=== PATIENT | female | born 1955 | race Caucasian/White ===

== ENCOUNTER 2017-03-26 14:12 | Emergency (ER) | payer OTHER ==
[2017-03-26] MEDS: ALBUTEROL 0.083% (NEB) 2.5 MG/3 ML AMP HHN (18:32)
[2017-03-26] MEDS: IPRATROPIUM (NEB) 0.5 MG/2.5 ML AMP HHN (18:32)
== END 2017-03-26 20:15 | disposition home or self-care (01) ==
LOC: FTE 14:12
DX: J18.9 Pneumonia, unspecified organism (principal); I10 Essential (primary) hypertension; J45.909 Unspecified asthma, uncomplicated
CPT/HCPCS: 71045; 94664; 99284-25

== ENCOUNTER 2017-05-10 10:25 | Emergency (ER) | payer SELFPAY, OTHER | END 2017-05-10 20:45 | disposition left against medical advice (07) | LOC: FTE 20:45 | DX: R51 Headache (principal) | CPT/HCPCS: 99282 ==

== ENCOUNTER 2017-06-13 21:23 | Inpatient (IN) | payer MEDICAID ==
[2017-06-13 23:51] LABS: ADD MAN DIFF? NO; BASOPHIL # 0.1 10^3/ul (0.0-0.1); BASOPHILS % 0.6 % (0.0-2.0); EOSINOPHILS % 0.3 % (0.0-7.0); HEMATOCRIT 39.3 % (37.0-47.0); HEMOGLOBIN 12.6 g/dl (12.0-16.0); LYMPHOCYTES # 1.2 10^3/ul (0.8-2.9); LYMPHOCYTES % 9.9 % (15.0-51.0); MEAN CORPUSCULAR HEMOGLOBIN 30.7 pg (29.0-33.0); MEAN CORPUSCULAR HGB CONC 32.1 g/dl (32.0-37.0); MEAN CORPUSCULAR VOLUME 95.6 fl (82.0-101.0); MEAN PLATELET VOLUME 10.3 fl (7.4-10.4); MONOCYTE # 0.6 10^3/ul (0.3-0.9); MONOCYTES % 4.8 % (0.0-11.0); NEUTROPHIL # 10.3 10^3/ul (1.6-7.5); NEUTROPHILS % 83.6 % (39.0-77.0); PLATELET COUNT 278 10^3/UL (140-415); RED BLOOD COUNT 4.11 10^6/ul (4.20-5.40); RED CELL DISTRIBUTION WIDTH 15.5 % (11.5-14.5)
[2017-06-13 23:51] LABS: WHITE BLOOD COUNT 12.3 10^3/ul (4.8-10.8)
[2017-06-13 23:58] LABS: ALANINE AMINOTRANSFERASE 27 IU/L (13-69); ALBUMIN 4.6 g/dl (3.3-4.9); ALBUMIN/GLOBULIN RATIO 0.97; ALKALINE PHOSPHATASE 87 IU/L (42-121); ANION GAP 26 (8-16); ASPARTATE AMINO TRANSFERASE 22 IU/L (15-46); BLOOD UREA NITROGEN 58 mg/dl (7-20); CALCIUM 10.6 mg/dl (8.4-10.2); CARBON DIOXIDE 35 mmol/L (21-31); CHLORIDE 93 mmol/L (97-110); CREATININE 7.48 mg/dl (0.44-1.00); GLUCOSE 190 mg/dl (70-220); POTASSIUM 4.6 mmol/L (3.5-5.1); SODIUM 149 mmol/L (135-144); TOTAL PROTEIN 9.3 g/dl (6.1-8.1)
[2017-06-14] MEDS: METOCLOPRAMIDE 10 MG INJ IV (00:06)
[2017-06-14] MEDS: SOD CHLORIDE 0.9% 500 ML IV (00:06)
[2017-06-14 00:09] LABS: TROPONIN-I 0.018 ng/ml (0.00-0.12)
[2017-06-14 01:13] LABS: INR 1.03; PROTIME 13.6 Sec (11.9-14.9); PT RATIO 1.1
[2017-06-14 01:14] LABS: PARTIAL THROMBOPLASTIN TIME 32.4 Sec (25.0-35.0)
[2017-06-14] MEDS: FENTAnyl 50 MCG/ML VIAL IV (02:04)
[2017-06-14] MEDS ORDERED: METOCLOPRAMIDE 10 MG INJ IV (04:00)
[2017-06-14] MEDS: ONDANSETRON 4 MG INJ IV (04:17)
[2017-06-14] MEDS: morphine 4 MG/ML VIAL IV (04:17)
[2017-06-14] MEDS ORDERED: ONDANSETRON 4 MG INJ IV ×2 (04:30→07:00)
[2017-06-14] MEDS: IOHEXOL 300MG/ML 150 ML BTL (04:36)
[2017-06-14] MEDS: SOD CHLORIDE 0.9% 100 ML (04:36)
[2017-06-14] MEDS: SUCRALFATE 1 GM TAB PO ×4 (07:00→22:27)
[2017-06-14] MEDS ORDERED: BACLOFEN 10 MG TAB PO (07:00)
[2017-06-14] MEDS ORDERED: ACETAMINOPHEN 325 MG TAB PO (07:00)
[2017-06-14] MEDS ORDERED: NACL 0.9% 3 ML SYG IV (07:00)
[2017-06-14] MEDS ORDERED: morphine 2 MG INJ (07:08)
[2017-06-14] MEDS ORDERED: PIPER-TAZO 3.375 GM IV (PMX) 100 ML IVPB (07:30)
[2017-06-14] MEDS: morphine 2 MG INJ IV ×3 (07:36→20:46)
[2017-06-14] MEDS: BISACODYL (EC) 5 MG TAB PO (09:00)
[2017-06-14] MEDS: FUROSEMIDE 40 MG TAB PO ×3 (09:00→22:23)
[2017-06-14] MEDS: GABAPENTIN 300 MG CAP PO ×2 (09:00→20:30)
[2017-06-14] MEDS: AMLODIPINE 5 MG TAB PO ×2 (09:00)
[2017-06-14] MEDS: CALCITRIOL 0.25 MCG CAP PO ×2 (09:00)
[2017-06-14] MEDS: CLOPIDOGREL 75 MG TAB PO ×2 (09:00)
[2017-06-14] MEDS: LOSARTAN 50 MG TAB PO ×2 (09:00)
[2017-06-14] MEDS: PANTOPRAZOLE (EC) 40 MG TAB PO ×2 (09:00)
[2017-06-14] MEDS: VENLAFAXINE (XR) 75 MG CAP PO (09:00)
[2017-06-14] MEDS: ALBUTEROL HFA 8 GM INHALER INH ×4 (09:00→21:00)
[2017-06-14] MEDS: PIPER-TAZO 2.25 GM (PMX) 50 ML IVPB ×2 (09:00→13:20)
[2017-06-14] MEDS: HYDROCODONE/APAP (5/325) TAB PO ×2 (09:12→23:53)
[2017-06-14 14:33] LABS: HEPATITIS B SURFACE ANTIGEN NEGATIVE (NEGATIVE)
[2017-06-14 15:01] LABS: HEPATITIS B SURFACE ANTIBODY NEGATIVE (NEGATIVE)
[2017-06-14] MEDS: ALBUMIN HUMAN 25% 100 ML IV (20:29)
[2017-06-14] MEDS: ATORVASTATIN 80 MG TAB PO (20:46)
[2017-06-15] MEDS: ALBUTEROL HFA 8 GM INHALER INH ×5 (01:00→17:00)
[2017-06-15] MEDS: SUCRALFATE 1 GM TAB PO ×3 (06:28→17:41)
[2017-06-15 08:34] LABS: ADD MAN DIFF? NO
[2017-06-15 08:46] LABS: HEMOGLOBIN A1C 6.4 % (0-5.9)
[2017-06-15 08:49] LABS: WHITE BLOOD COUNT 10.1 10^3/ul (4.8-10.8)
[2017-06-15 08:49] LABS: BASOPHIL # 0.1 10^3/ul (0.0-0.1); BASOPHILS % 0.7 % (0.0-2.0); EOSINOPHILS # 0.3 10^3/ul (0.0-0.5); EOSINOPHILS % 2.7 % (0.0-7.0); HEMOGLOBIN 10.5 g/dl (12.0-16.0); LYMPHOCYTES # 1.4 10^3/ul (0.8-2.9); LYMPHOCYTES % 14.1 % (15.0-51.0); MEAN CORPUSCULAR HEMOGLOBIN 30.6 pg (29.0-33.0); MEAN CORPUSCULAR HGB CONC 30.9 g/dl (32.0-37.0); MEAN CORPUSCULAR VOLUME 99.1 fl (82.0-101.0); MEAN PLATELET VOLUME 10.8 fl (7.4-10.4); MONOCYTE # 0.6 10^3/ul (0.3-0.9); MONOCYTES % 6.2 % (0.0-11.0); NEUTROPHIL # 7.7 10^3/ul (1.6-7.5); NEUTROPHILS % 75.8 % (39.0-77.0); PLATELET COUNT 224 10^3/UL (140-415); RED BLOOD COUNT 3.43 10^6/ul (4.20-5.40); RED CELL DISTRIBUTION WIDTH 15.3 % (11.5-14.5)
[2017-06-15 08:50] LABS: POSITIVE DIFF @See below
[2017-06-15] MEDS: LOSARTAN 50 MG TAB PO (08:57)
[2017-06-15] MEDS: AMLODIPINE 5 MG TAB PO (08:58)
[2017-06-15 08:59] LABS: ALANINE AMINOTRANSFERASE 123 IU/L (13-69); ALBUMIN 3.7 g/dl (3.3-4.9); ALBUMIN/GLOBULIN RATIO 1.08; ALKALINE PHOSPHATASE 91 IU/L (42-121); ANION GAP 20 (8-16); ASPARTATE AMINO TRANSFERASE 102 IU/L (15-46); BILIRUBIN,INDIRECT 0.1 mg/dl (0-1.1); BILIRUBIN,TOTAL 0.1 mg/dl (0.2-1.3); BLOOD UREA NITROGEN 43 mg/dl (7-20); CALCIUM 8.2 mg/dl (8.4-10.2); CARBON DIOXIDE 25 mmol/L (21-31); CHLORIDE 101 mmol/L (97-110); CHOL/HDL RATIO 5.6 RATIO; CHOLESTEROL 175 mg/dl (100-200); CREATININE 5.95 mg/dl (0.44-1.00); GLUCOSE 125 mg/dl (70-220); HDL CHOLESTEROL 31 mg/dl (35-98); LDL CHOLESTEROL,CALCULATED 81 mg/dl; MAGNESIUM 2.1 mg/dl (1.7-2.5); SODIUM 141 mmol/L (135-144); TOTAL PROTEIN 7.1 g/dl (6.1-8.1); TRIGLYCERIDES 316 mg/dl (0-149)
[2017-06-15] MEDS: GABAPENTIN 300 MG CAP PO (09:05)
[2017-06-15] MEDS: FUROSEMIDE 40 MG TAB PO (09:05)
[2017-06-15] MEDS: VENLAFAXINE (XR) 75 MG CAP PO (09:05)
[2017-06-15] MEDS: CLOPIDOGREL 75 MG TAB PO (09:05)
[2017-06-15] MEDS: CALCITRIOL 0.25 MCG CAP PO (09:05)
[2017-06-15] MEDS: PANTOPRAZOLE (EC) 40 MG TAB PO (09:06)
[2017-06-15] MEDS: BISACODYL (EC) 5 MG TAB PO (09:06)
[2017-06-15 09:11] LABS: POTASSIUM 5.1 mmol/L (3.5-5.1)
== END 2017-06-15 19:10 | disposition home or self-care (01) | DRG 70 ==
LOC: MS4 06-14 04:18 → PP2 06-14 18:55 → E/R 21:23
PROVIDERS: Internal Medicine
DX: G93.40 Encephalopathy, unspecified (principal); N18.6 End stage renal disease; E87.0 Hyperosmolality and hypernatremia; I12.0 Hypertensive chronic kidney disease with stage 5 chronic kidney disease or end stage renal disease; R51 Headache; K52.9 Noninfective gastroenteritis and colitis, unspecified; M25.532 Pain in left wrist; I25.10 Atherosclerotic heart disease of native coronary artery without angina pectoris; D64.9 Anemia, unspecified; Z99.2 Dependence on renal dialysis
CPT/HCPCS: 36415; 70450; 70496; 70498; 71045; 73100; 74176; 80053; 80061; 82962; 83036; 83735; 84443; 84484; 85025; 85610; 85730; 86706; 87340; 90935; 93005; 93306; 96374; 96375; 96376; 99285-25

== ENCOUNTER 2017-09-04 12:26 | Emergency (ER) | payer MEDICAID ==
[2017-09-04 16:29] LABS: ADD MAN DIFF? NO
[2017-09-04 16:30] LABS: WHITE BLOOD COUNT 8.4 10^3/ul (4.8-10.8)
[2017-09-04 16:30] LABS: BASOPHIL # 0.1 10^3/ul (0.0-0.1); BASOPHILS % 0.8 % (0.0-2.0); EOSINOPHILS # 0.2 10^3/ul (0.0-0.5); EOSINOPHILS % 1.8 % (0.0-7.0); HEMATOCRIT 34.1 % (37.0-47.0); HEMOGLOBIN 10.4 g/dl (12.0-16.0); LYMPHOCYTES # 1.4 10^3/ul (0.8-2.9); LYMPHOCYTES % 16.2 % (15.0-51.0); MEAN CORPUSCULAR HEMOGLOBIN 30.1 pg (29.0-33.0); MEAN CORPUSCULAR HGB CONC 30.5 g/dl (32.0-37.0); MEAN CORPUSCULAR VOLUME 98.8 fl (82.0-101.0); MEAN PLATELET VOLUME 9.7 fl (7.4-10.4); MONOCYTE # 0.5 10^3/ul (0.3-0.9); MONOCYTES % 5.5 % (0.0-11.0); NEUTROPHIL # 6.4 10^3/ul (1.6-7.5); NEUTROPHILS % 75.3 % (39.0-77.0); PLATELET COUNT 230 10^3/UL (140-415); RED BLOOD COUNT 3.45 10^6/ul (4.20-5.40); RED CELL DISTRIBUTION WIDTH 14.5 % (11.5-14.5)
[2017-09-04 16:48] LABS: ALANINE AMINOTRANSFERASE 23 IU/L (13-69); ALBUMIN 4.2 g/dl (3.3-4.9); ALBUMIN/GLOBULIN RATIO 1.05; ALKALINE PHOSPHATASE 82 IU/L (42-121); ANION GAP 20 (8-16); ASPARTATE AMINO TRANSFERASE 14 IU/L (15-46); BILIRUBIN,INDIRECT 0.1 mg/dl (0-1.1); BILIRUBIN,TOTAL 0.1 mg/dl (0.2-1.3); BLOOD UREA NITROGEN 36 mg/dl (7-20); CALCIUM 7.8 mg/dl (8.4-10.2); CARBON DIOXIDE 26 mmol/L (21-31); CHLORIDE 105 mmol/L (97-110); CREATINE KINASE 29 IU/L (23-200); CREATININE 7.93 mg/dl (0.44-1.00); GLUCOSE 180 mg/dl (70-220); POTASSIUM 4.1 mmol/L (3.5-5.1); SODIUM 147 mmol/L (135-144); TOTAL PROTEIN 8.2 g/dl (6.1-8.1)
[2017-09-04 16:50] LABS: INR 0.99; PARTIAL THROMBOPLASTIN TIME 28.5 Sec (25.0-35.0); PROTIME 13.2 Sec (11.9-14.9)
[2017-09-04] MEDS: ONDANSETRON 4 MG INJ IV (16:51)
[2017-09-04] MEDS: morphine 2 MG INJ IV (16:51)
[2017-09-04] MEDS: LORAZEPAM 2 MG INJ IV (16:51)
[2017-09-04 17:01] LABS: B-TYPE NATRIURETIC PEPTIDE 3660 PG/ML (0-125); CK INDEX 1.4; CK-MB 0.41 ng/ml (0.0-2.4); TROPONIN-I 0.013 ng/ml (0.000-0.120)
[2017-09-04] MEDS ORDERED: FUROSEMIDE 40 MG INJ IV (18:00)
[2017-09-04] MEDS: ALBUTEROL 0.083% (NEB) 2.5 MG/3 ML AMP NEB (19:02)
[2017-09-04] MEDS: IPRATROPIUM (NEB) 0.5 MG/2.5 ML AMP NEB (19:02)
== END 2017-09-04 21:31 | disposition home or self-care (01) ==
LOC: E/R 12:26
DX: G44.209 Tension-type headache, unspecified, not intractable (principal); R40.2252 Coma scale, best verbal response, oriented, at arrival to emergency department; J81.1 Chronic pulmonary edema; N18.6 End stage renal disease; I12.0 Hypertensive chronic kidney disease with stage 5 chronic kidney disease or end stage renal disease; R40.2142 Coma scale, eyes open, spontaneous, at arrival to emergency department; R40.2362 Coma scale, best motor response, obeys commands, at arrival to emergency department; Z99.2 Dependence on renal dialysis
CPT/HCPCS: 70450; 71045; 80053; 82550; 82553; 82962; 83880; 84484; 85025; 85610; 85730; 93005; 94664; 96374; 96375; 99285-25